=== PATIENT | female | born 1930 | race African-American/Black ===

== ENCOUNTER 2021-05-04 03:23 | Inpatient (IN) | payer OTHER ==
--- OUTSIDE RECORDS SUMMARY | 2021-05-04 03:26 | XMS REPORT | Continuity of Care Document ---
:1930 Author Organization [facility] t Address [address] [place] [address] Care Team Providers Name Role Phone ERICKSON_R Attending Clinician Unavailable ERICKSON_R Admitting Clinician Unavailable Payers Payer Name Policy Type Policy Number Effective Date Expiration Date Ronaldo diggs MEDICARE B-[place]: [id number] 1996 [employer] 00:00:00 Problems This patient has no known problems. Allergies, Adverse Reactions, Alerts This patient has no known allergies or adverse reactions. Medications This patient has no known medications. Procedures This patient has no known procedures. Encounters Start End Encounter Admission Attending Care Care Encounter Source Date/Time Date/Time Type Type Clinicians Facility Department ID 2020-05-07 2020-05-07 Outpatient ERICKSON_R [facility] [id number] [place] 01:03:00 01:03:00 [facility] 2020-04-06 2020-04-06 Outpatient ERICKSON_R [facility] [id number] [place] 10:31:00 10:31:00 [facility] 2020-03-21 2020-03-21 Outpatient ERICKSON_R [facility] [id number] [place] 02:40:00 02:40:00 [facility] 2020-03-13 2020-03-13 Outpatient ERICKSON_R [facility] [id number] [place] 10:51:00 10:51:00 [facility] 2020-03-09 2020-03-09 Outpatient ERICKSON_R [facility] [id number] - [place] 04:12:00 04:12:00 [facility] Results This patient has no known results.
[2021-05-04] MEDS ORDERED: NA CHLORIDE 0.9% 1,000 ML ONE ×3 (05:03→12:24)
[2021-05-04] MEDS ORDERED: ONDANSETRON 4 MG/2 ML VIAL ONE (05:03)
[2021-05-04 05:16] LABS: Absolute Lymphocytes (CBC) 0.5 K/uL (0.7-4.9); Hematocrit 37.9 % (36.0-45.0); Lymphocytes % 3.2 % (15.3-44.8); MPV 6.7 fL (7.6-11.3); RBC Red Blood Cell Count 4.48 M/uL (3.86-4.86)
[2021-05-04 05:39] LABS: BUN Blood Urea Nitrogen 20 mg/dL (7-18); Bicarbonate 24 mmol/L (21-32); Glucose Level 151 mg/dL (74-106); Potassium 4.2 mmol/L (3.5-5.1); Sodium Level 132 mmol/L (136-145)
[2021-05-04 05:43] LABS: Blood Morphology Comment NOT SEEN (NOT SEEN); Platelet Estimate ADEQ; White Blood Cell Scan OK (OK)
[2021-05-04] MEDS ORDERED: METHYLPREDNISOLONE 125 MG INJ ONE (05:59)
[2021-05-04] MEDS ORDERED: NA CHLORIDE 0.9% 250 ML ONE (06:00)
[2021-05-04] MEDS ORDERED: CEFTRIAXONE 500 MG/VIAL ONE (06:00)
[2021-05-04] MEDS ORDERED: AZITHROMYCIN 500 MG INJ IVPB ONE (06:00)
[2021-05-04] MEDS ORDERED: NA CHLORIDE 0.9% 50 ML ONE (06:00)
--- NOTE | 2021-05-04 06:01 | ER ---
Nurse's Notes [facility] Name: Chary Ramachandran Age: 89 yrs Sex: Female : 1930 Arrival Date: 05/04/2021 Time: 03:26 Bed 7 Private MD: Diagnosis: Pneumonia due to SARS-associated coronavirus;Hypoxemia;Dehydration Presentation: 05/04 03:26 Chief complaint: EMS states: called out for mouth bleeding, pt has been on hospice for as6 about 1 year for ulcers on backside and dementia. Coronavirus screen: tested positive for COVID on 04/23. Ebola Screen: No symptoms or risks identified at this time. Initial Sepsis Screen: Does the patient meet any 2 criteria? No. Patient's initial sepsis screen is negative. Does the patient have a suspected source of infection? No. Patient's initial sepsis screen is negative. Risk Assessment: Do you want to hurt yourself or someone else? Unable to obtain. Onset of symptoms was May 04, 2021. 03:26 Method Of Arrival: EMS: [facility] [place] [place] [facility] as6 03:26 Acuity: TRICIA 3 as6 Triage Assessment: 04:25 General: Behavior is flat. daja Historical: - Allergies: 03:56 No Known Allergies; as6 - Home Meds: 03:56 None [Active]; as6 - Immunization history:: Adult Immunizations unknown. - Social history:: Smoking status: unknown. - Family history:: not pertinent. - Hospitalizations: : No recent hospitalization is reported. Screenin:19 Abuse screen: Denies threats or abuse. Denies injuries from another. Nutritional daja screening: Difficulty chewing/swallowing? Yes. Tuberculosis screening: No symptoms or risk factors identified. Fall Risk None identified. Assessment: 04:06 General: Appears unkempt, malnourished, Contracted to all extremities and decubitus to daja chest wall, arms-bilaterally, buttocks, with multiple stages of decay and old scars from healed ulcers. Duoderm to buttocks "was just changed today", per the pt's granddaughter. The pt's granddaughter is at bedside, although the pt was brought in via EMS. She had "chewed" her gums and there was clotted blood that was suctioned from her mouth, by the MD and RT is presently, suctioning the pt. The pt is a hospice pt and her granddaughter states the same. The pt's diaper was changed, as the foul smell from the wounds, made me think she had soiled herself. This was not the case. We removed the multiple blankets and the linen, beneath and around the pt. . Pain: Unable to use pain scale. Patient appears chewing her gums until they bleed. Neuro: Level of Consciousness is non-verbal and awake, but not responsive to commands. This is her baseline, per the pt's granddaughter. . Cardiovascular: Rhythm is sinus tachycardia with multifocal PVCs 144bpm, during suctioning. Respiratory: Breath sounds with rhonchi Gurgling audible without a stethoscope. GI: Incontinent. : Incontinent. Derm: Decubitus located on bilateral sacrum hands, arms, buttocks and heels. Musculoskeletal: contracted to all ext. 04:26 General: The pt appears much more comfortable after she was suctioned. . daja 05:08 Respiratory: Breath sounds are diminished bilaterally. in left lower lobe and right daja lower lobe The pt's breathing has greatly improved, after RT suctioned her. Her granddaughter and great-granddaughter are at bedside. The labs that my charge nurse was able to draw, as she used the US to place the pt's SL to her Lt hand. was informed of this and we are giving the fluids to see if we may be able to collect the other labs, after it's infusion. The pt appears much more comfortable. 05:17 General: The granddaughter and great-granddaughter, at bedside, were reassured that it daja is apparent that they are caring for the pt well and to the best of their ability. They thanked me and I sincerely meant this, given their caring and doting on the pt and a history of the same, with every hospital stay. . 06:18 General: The pt's two sons have come to her bedside to see her, although she does not daja respond to anyone. The pt's VS have improved and all the labs were sent, and the lab was called, as my charge nurse had a very difficult time getting her blood. The pt never protested and simply stared ahead, not responding. The MD discussed with the family at bedside, the seriousness of the pt's condition and affirmed that she had previously been on hospice. . 06:23 General:. daja 06:24 General: The admitting MD is at bedside, assessing the pt and speaking with the son and daja granddaughter. . 07:42 General: Appears comfortable, Behavior is unresponsive. Pain: Unable to use pain scale. ke1 Patient appears quiet. Neuro: Level of Consciousness is unresponsive. Cardiovascular: Rhythm is sinus tachycardia. Respiratory: Airway obstructed, Respiratory effort is unlabored, Respiratory pattern is regular, Sputum is bloody Patient unable to swallow mouth secretion Breath sounds are coarse bilaterally. GI: Abdomen is non-distended, Abd is soft and non tender. : incontinent on diaper. 07:58 Derm: Skin is thin, Decubitus located on bilateral sacrum. Musculoskeletal: Bony ke1 deformity noted of contractures upper extremities Swelling present in bilateral elbows. 09:00 Reassessment: No changes from previously documented assessment. ke1 10:00 Reassessment: No changes from previously documented assessment. Patient and/or family ke1 updated on plan of care and expected duration. Pain level reassessed. . 11:00 Reassessment: No changes from previously documented assessment. ke1 Vital Signs: 03:26 BP 147 / 87; Pulse 130; Resp 30; Pulse Ox 90% on 3 lpm NC; as6 03:57 BP 144 / 90; Pulse 136; Resp 24 S; Pulse Ox 92% on 2 lpm NC; as6 04:06 Weight 52.16 kg (R); Height 5 ft. 8 in. (172.72 cm) (R); as6 04:21 BP 127 / 70; Pulse 133; Resp 28; Temp 97.7; Pulse Ox 95% on 2 lpm NC; daja 05:14 BP 101 / 77; Pulse 126; Resp 26; Temp 97.6; Pulse Ox 97% on 2 lpm NC; Pain 0/10; daja 06:17 BP 122 / 74; Pulse 110; Resp 26; Temp 97.6; Pulse Ox 96% on 2 lpm NC; Pain 0/10; daja 08:00 BP 120 / 73; Pulse 107; Resp 21; Temp 96.8; Pulse Ox 96% on 2 lpm NC; ke1 10:34 BP 134 / 94; Pulse 115; Resp 19; Pulse Ox 97% on 2 lpm NC; jd3 04:06 Body Mass Index 17.49 (52.16 kg, 172.72 cm) as6 ED Course: 03:26 Patient arrived in ED. as6 03:26 Jabari Oneill MD is Attending Physician. rn 03:56 Triage completed. as6 03:57 Arm band placed on. as6 04:01 Zahraa Dai, DANE is Primary Nurse. daja 04:06 XRAY Chest (1 view) In Process Unspecified. EDMS 04:19 Patient has correct armband on for positive identification. Placed in gown. Bed in low daja position. Call light in reach. Side rails up X2. Adult w/ patient. vehicle monitor technician on. Pulse ox on. NIBP on. Warm blanket given. Verbal reassurance given. to the family. 04:19 Missed attempt(s): 20 gauge in right wrist. daja 04:25 No provider procedures requiring assistance completed. daja 05:00 Inserted saline lock: 22 gauge in right wrist, using aseptic technique. daja 05:12 CBC with Diff Sent. daja 05:12 Basic Metabolic Panel Sent. daja 05:12 SARS-COV-2 RT PCR (Document "Date of Onset" if Symptomatic) Sent. daja 05:45 Inserted saline lock: 22 gauge in right ,using aseptic technique. lower leg Blood daja collected. 05:53 CRP Sent. daja 05:53 Lactate Sent. daja 05:53 Blood Culture Sent. daja 05:53 Procalcitonin Sent. daja 05:53 Procalcitonin Sent. daja 05:53 Blood Culture Adult (2) Sent. daja 05:53 Protime (+inr) Sent. daja 05:54 Ptt, Activated Sent. daja 06:00 Franko Alcala is Hospitalizing Provider. rn Administered Medications: 05:00 Drug: Zofran (Ondansetron) 4 mg Route: IVP; Site: right wrist; daja 05:13 Follow up: Response: No adverse reaction daja 05:00 Drug: NS 0.9% 1000 ml Route: IV; Rate: 1000 ml; Site: right wrist; daja 07:05 Follow up: IV Status: Completed infusion ke1 05:29 Drug: NS 0.9% 1000 ml Route: IV; Rate: 1000 ml; Site: right hand; as6 07:30 Follow up: IV Status: Completed infusion ke1 06:00 Drug: SOLU-Medrol (methylPrednisoLONE) 125 mg Route: IVP; Site: right wrist; daja 06:16 Follow up: Response: No adverse reaction daja 06:05 Drug: Rocephin (cefTRIAXone) 1 grams Route: IV; Rate: calculated rate; Site: right daja wrist; 06:17 Follow up: Response: No adverse reaction; IV Status: Completed infusion; IV Intake: 50mlbo 06:16 Drug: Zithromax (azithromycin) 500 mg Route: IVPB; Infused Over: 1 hrs; Site: right daja wrist; 07:16 Follow up: Response: No adverse reaction ke1 07:16 Follow up: IV Status: Completed infusion ke1 Intake: 06:17 IV: 50ml; Total: 50ml. daja Outcome: 04:26 critical daja 06:00 Decision to Hospitalize by Provider. rn 16:16 Patient left the ED. ab2 Signatures: Dispatcher [employer] EDMS Jabari Oneill MD MD rn Davies, Jonathon, RN RN jd3 Slawson, Ashby, RN RN as6 Zahraa Dai RN RN bo Bleininger, Alexis ab2 Eh Kennedy RN RN ke1 Corrections: (The following items were deleted from the chart) 08:29 07:05 IV Status: Completed infusion ke1 ke1 08:34 08:00 BP 120 / 73; Pulse 107bpm; Resp 16bpm; Pulse Ox 96% 2 lpm Nasal Cannula; Temp ke1 96.8F; ke1 08:35 07:42 Respiratory: Airway obstructed, Respiratory effort is unlabored, Respiratory ke1 pattern is regular, Sputum is bloody Patient unable to swallow mouth secretion Breath sounds are coarse bilaterally. ke1
--- NOTE | 2021-05-04 06:01 | EDPHYS ---
Physician Documentation [facility] Name: Chary Ramachandran Age: 89 yrs Sex: Female : 1930 Arrival Date: 05/04/2021 Time: 03:26 Bed 7 Private MD: ED Physician Jabari Oneill HPI: 05/04 03:42 This 89 yrs old Black Female presents to ER via Unassigned with complaints of bleeding rn from mouth. 03:42 The patient presents with bleeding. rn 03:44 The problem is located in the mouth. Onset: The symptoms/episode began/occurred today. rn Duration: The symptoms are continuous. Modifying factors: The symptoms are alleviated by nothing, the symptoms are aggravated by nothing. Severity of symptoms: At their worst the symptoms were mild, in the emergency department the symptoms have improved. The patient has not experienced similar symptoms in the past. The patient has not recently seen a physician. Family member states patient diagnosed with COVID 11 days ago, has not been eating or drinking lately, placed on 2 L oxygen last week, on hospice. Presents today after family noticed blood coming from mouth. No known trauma. Not on blood thinners. EMS placed on facemask for concern of aspiration and oxygen sat 95%. Family reports just changed dressing on decubitus ulcers and no signs of infection/drainage, and seem to be healing ok. . Historical: - Allergies: 03:56 No Known Allergies; as6 - Home Meds: 03:56 None [Active]; as6 - Immunization history:: Adult Immunizations unknown. - Social history:: Smoking status: unknown. - Family history:: not pertinent. - Hospitalizations: : No recent hospitalization is reported. ROS: 03:44 Unable to obtain ROS due to baseline dementia. rn Exam: 03:44 Constitutional: Cachectic female, with contractures, mild tachypnea and coarse wet rn breath sounds audible from foot of bed. Head/Face: Normocephalic, atraumatic. Eyes: Periorbital areas with no swelling, redness, or edema. ENT: Poor dentition without focal area of bleeding other than gums, has a couple of teeth and grinding, no tongue laceration noted, suctioned and small clots removed. Bites down quickly on suction. Cardiovascular: Tachycardic, regular Respiratory: Coarse breath sounds bilaterally, difficult to tell if resonating from pharynx/hypopharynx. Abdomen/GI: Soft, non-tender Skin: Warm, dry, no cyanosis MS/ Extremity: + upper ext contractures. Neuro: Awake, does not move upper extremities. Vital Signs: 03:26 BP 147 / 87; Pulse 130; Resp 30; Pulse Ox 90% on 3 lpm NC; as6 03:57 BP 144 / 90; Pulse 136; Resp 24 S; Pulse Ox 92% on 2 lpm NC; as6 04:06 Weight 52.16 kg (R); Height 5 ft. 8 in. (172.72 cm) (R); as6 04:21 BP 127 / 70; Pulse 133; Resp 28; Temp 97.7; Pulse Ox 95% on 2 lpm NC; daja 05:14 BP 101 / 77; Pulse 126; Resp 26; Temp 97.6; Pulse Ox 97% on 2 lpm NC; Pain 0/10; daja 06:17 BP 122 / 74; Pulse 110; Resp 26; Temp 97.6; Pulse Ox 96% on 2 lpm NC; Pain 0/10; daja 08:00 BP 120 / 73; Pulse 107; Resp 21; Temp 96.8; Pulse Ox 96% on 2 lpm NC; ke1 10:34 BP 134 / 94; Pulse 115; Resp 19; Pulse Ox 97% on 2 lpm NC; jd3 04:06 Body Mass Index 17.49 (52.16 kg, 172.72 cm) as6 MDM: 03:27 Patient medically screened. rn 04:19 ED course: Pt improved with deep suctioning by RT, upper airway noise improved, no rn blood obtained from posterior pharynx, only mucous. . 05:43 ED course: Family ok with patient being admitted, states DNR/DNI. . ED course: No rn longer bleeding, patient not chewing/gnawing as much now that is breathing easier and not as agitated.. 05:59 Differential diagnosis: Pneumonia, COVID, dehydration, acute renal failure, delirium. rn Data reviewed: vital signs, nurses notes, lab test result(s), EKG, radiologic studies, plain films, and as a result, I will admit patient. Counseling: I had a detailed discussion with the patient and/or guardian regarding: the historical points, exam findings, and any diagnostic results supporting the discharge/admit diagnosis, lab results, radiology results, the need for further work-up and treatment in the hospital. Response to treatment: the patient's symptoms have mildly improved after treatment, and as a result, I will admit patient. Admission orders: after a detailed discussion of the patient's condition and case, the admit orders are written by me. 05/04 03:42 Order name: CBC with Diff; Complete Time: 05:59 rn 05/04 03:42 Order name: Basic Metabolic Panel; Complete Time: 05:59 rn 05/04 03:42 Order name: Protime (+inr); Complete Time: 06:40 rn 05/04 03:42 Order name: Ptt, Activated; Complete Time: 06:40 05/04 03:42 Order name: SARS-COV-2 RT PCR (Document "Date of Onset" if Symptomatic); Complete Time: rn 05:05/04 04:35 Order name: Blood Culture Adult (2) 05/04 04:35 Order name: Procalcitonin 05/04 04:36 Order name: Blood Culture [facility] 05/04 04:36 Order name: Procalcitonin [facility] 05/04 04:37 Order name: Lactate; Complete Time: 06:40 rn 05/04 04:37 Order name: CRP; Complete Time: 06:40 05/04 05:20 Order name: CBC Smear Scan; Complete Time: 05:59 EDIN 05/04 08:01 Order name: CBC with Automated Diff [facility] 05/04 08:01 Order name: CBC with Automated Diff [facility] 05/04 03:42 Order name: IV Start; Complete Time: 05:12 05/04 03:42 Order name: XRAY Chest (1 view) 05/04 03:42 Order name: Suction; Complete Time: 05:12 05/04 03:52 Order name: Cardiac monitoring; Complete Time: 05:13 05/04 03:52 Order name: O2 Sat Monitoring; Complete Time: 05:13 05/04 08:01 Order name: Comprehensive Metabolic Panel [facility] 05/04 08:01 Order name: Comprehensive Metabolic Panel [facility] 05/04 10:13 Order name: Diet Pureed; Complete Time: 10:14 jd3 Administered Medications: 05:00 Drug: Zofran (Ondansetron) 4 mg Route: IVP; Site: right wrist; daja 05:13 Follow up: Response: No adverse reaction daja 05:00 Drug: NS 0.9% 1000 ml Route: IV; Rate: 1000 ml; Site: right wrist; daja 07:05 Follow up: IV Status: Completed infusion ke1 05:29 Drug: NS 0.9% 1000 ml Route: IV; Rate: 1000 ml; Site: right hand; as6 07:30 Follow up: IV Status: Completed infusion ke1 06:00 Drug: SOLU-Medrol (methylPrednisoLONE) 125 mg Route: IVP; Site: right wrist; daja 06:16 Follow up: Response: No adverse reaction daja 06:05 Drug: Rocephin (cefTRIAXone) 1 grams Route: IV; Rate: calculated rate; Site: right daja wrist; 06:17 Follow up: Response: No adverse reaction; IV Status: Completed infusion; IV Intake: 50mlbo 06:16 Drug: Zithromax (azithromycin) 500 mg Route: IVPB; Infused Over: 1 hrs; Site: right daja wrist; 07:16 Follow up: Response: No adverse reaction ke1 07:16 Follow up: IV Status: Completed infusion ke1 Disposition Summary: 05/04/21 06:00 Hospitalization Ordered Hospitalization Status: Inpatient Admission rn Provider: Franko Alcala rn Condition: Stable rn Problem: an ongoing problem rn Symptoms: have improved rn Bed/Room Type: Standard rn Location: Telemetry/MedSurg (Inpatient)(05/04/21 14:22) eb Room Assignment: [facility](05/04/21 14:22) eb Diagnosis - Pneumonia due to SARS-associated coronavirus rn - Hypoxemia rn - Dehydration rn Forms: - Medication Reconciliation Form rn - SBAR form rn Signatures: Dispatcher [employer] Jabari Toledo MD MD rn Smirch, Shelby RN RN Khloe Islas Ashby, RN RN as6 Zahraa Dai RN RN bo Ebrottie, Kouassi RN ke1 Corrections: (The following items were deleted from the chart) 05:43 03:44 Family member states patient diagnosed with COVID 11 days ago, has not been rn eating or drinking lately, placed on 2 L oxygen last week, on hospice. Presents today after family noticed blood coming from mouth. No known trauma. Not on blood thinners. EMS placed on facemask for concern of aspiration and oxygen sat 95%. . rn 06:00 Telemetry/MedSurg (Inpatient) rn ss : rn ss [facility] ER HOLD ss eb ERHOLD- eb
[2021-05-04 06:21] LABS: Protime INR 1.14
[2021-05-04] MEDS ORDERED: ACETAMINOPHEN 500 MG TAB PO PRN (07:58)
[2021-05-04] MEDS ORDERED: MORPHINE 2 MG/ML SYR IV PRN (07:58)
[2021-05-04] MEDS ORDERED: ONDANSETRON 4 MG/2 ML VIAL IV PRN (07:58)
[2021-05-04] MEDS: NA CHLORIDE 0.9% 1,000 ML IV SCH ×2 (08:00→21:20)
--- NOTE | 2021-05-04 11:21 | RAD REPORT ---
EXAM DESCRIPTION: [place] Single View05/04/2021 4:06 am CLINICAL HISTORY: DYSPNEA COMPARISON: None. FINDINGS: Single frontal radiograph view of the chest. Cardiomediastinal silhouette: Atherosclerotic calcification of thoracic aorta. Heart is not enlarged. Leads overlie the chest. Lungs: Patchy bibasilar opacities and possible small pleural effusions. No pneumothorax. Bones: Degenerative change of the spine and shoulders. Upper abdomen: No abnormality identified. IMPRESSION: 1. Patchy bibasilar opacities may be related to atelectasis or pneumonia. Possible small bilateral pleural effusions. Electronically signed by: Anthony Patiño 05/04/2021 5:25 AM ELEVATOR CONSTRUCTOR HELPER Due to temporary technical issues with the PACS/Fluency reporting system, reports are being signed by the in house radiologist without review as a courtesy to ensure prompt reporting. The interpreting r adiologist is fully responsible for the content of the report.
[2021-05-04 18:02] VITALS: BMI 17.3
[2021-05-04] MEDS ORDERED: CEFTRIAXONE 1,000 MG in NA CHLORIDE 0.9% 50 ML IVPB ONE (18:26)
[2021-05-04] MEDS ORDERED: METOPROLOL TARTRATE 5 MG/5 ML INJ IV STA (18:27)
[2021-05-05] MEDS: METHYLPREDNISOLONE 125 MG INJ IV SCH ×4 (01:36→17:20)
[2021-05-05 06:16] LABS: Absolute Lymphocytes (CBC) 0.3 K/uL (0.7-4.9); Hematocrit 30.3 % (36.0-45.0); Lymphocytes % 2.1 % (15.3-44.8); MPV 6.7 fL (7.6-11.3); RBC Red Blood Cell Count 3.52 M/uL (3.86-4.86)
[2021-05-05 06:36] LABS: ALT/SGPT 25 U/L (12-78); AST/SGOT 26 U/L (15-37); Albumin 1.9 g/dL (3.4-5.0); Alkaline Phosphatase 97 U/L (45-117); BUN Blood Urea Nitrogen 19 mg/dL (7-18); Bicarbonate 25 mmol/L (21-32); Bilirubin Total 0.6 mg/dL (0.2-1.0); Glucose Level 125 mg/dL (74-106); Potassium 3.2 mmol/L (3.5-5.1); Protein, Total 6.9 g/dL (6.4-8.2); Sodium Level 139 mmol/L (136-145)
[2021-05-05] MEDS ORDERED: CEFTRIAXONE 1,000 MG in NA CHLORIDE 0.9% 50 ML IVPB ONE (12:00)
[2021-05-05] MEDS: Levofloxacin500mg IV 500 MG/100 ML BAG IV SCH (12:08)
[2021-05-05] MEDS: NA CHLORIDE 0.9% 1,000 ML IV SCH (12:08)
--- NOTE | 2021-05-05 13:56 | P.HP ---
Certification for Inpatient Patient admitted to: Inpatient With expected LOS: >2 Midnights Patient will require the following post-hospital care: None Practitioner: I am a practitioner with admitting privileges, knowledge of patient current condition, hospital course, and medical plan of care. Services: Services provided to patient in accordance with Admission requirements found in Title 42 Section 412.3 of the Code of Federal Regulations Patient History Date of Service: 05/04/21 Reason for admission: Shortness of breath;COVID-19 with Acute P History of Present Illness: Patient is an 89-year-old female who came to the hospital with shortness of breath. Patient is on hospice for Alzheimer's dementia. She is end-stage. She does not really eat much anymore. She is bedbound. She needs her family to feed her. She is on hospice care team service. She was brought into the emergency room because she had blood in her mouth. She had been severely dehydrated from multiple bouts of diarrhea. She was found to have Covid pneumonia. She is slightly hypoxic and requiring 2 L of oxygen. She will be admitted for further treatment. Allergies No Known Allergies Allergy (Unverified 05/04/21 08:26) Home Medications: NK [No Home Meds] 05/04/21 - Past Medical/Surgical History -: Alzheimer's dementia Past Surgical History: Patient denies surgical history - Family History Father Family History: Reviewed- Non-Contributory - Social History Smoking Status: Unknown if ever smoked Alcohol use: No CD- Drugs: No Review of Systems 10-point ROS is otherwise unremarkable Physical Examination - Vital Signs Temperature: 97.2 F Blood Pressure: 144/80 Pulse: 97 Respirations: 20 Pulse Ox (%): 97 - Physical Exam General: Demented, Confused HEENT: Atraumatic, PERRLA, Mucous membr. moist/pink, EOMI, Sclerae nonicteric Neck: Supple, 2+ carotid pulse no bruit, No LAD, Without JVD or thyroid abnormality Respiratory: Diminished, Expiratory wheezes Cardiovascular: Regular rate/rhythm, Normal S1 S2, No murmurs Gastrointestinal: Normal bowel sounds, Soft and benign, Non-distended, No tenderness Musculoskeletal: No clubbing, No swelling, No tenderness Neurological: Normal tone, Sensation intact, Cranial nerves 3-12 intact, Abnormal affect Lymphatics: No axilla or inguinal lymphadenopathy - Studies Laboratory Data (last 24 hrs) 05/05/21 05:56: Sodium 139, Potassium 3.2 L, BUN 19 H, Creatinine 0.50 L, Glucose 125 H, Total Bilirubin 0.6, AST 26, ALT 25, Alkaline Phosphatase 97 05/05/21 05:56: WBC 16.80 H, Hgb 9.8 L D, Hct 30.3 L D, Plt Count 263 Microbiology Data (last 24 hrs): 05/04/21 05:45 Blood - Blood Anaerobic Blood Culture - Final Assessment & Plan - Problems (Diagnosis) (1) Alzheimer's dementia Current Visit: Yes Status: Acute (2) Pneumonia due to COVID-19 virus Current Visit: Yes Status: Acute (3) Leukocytosis Current Visit: Yes Status: Acute (4) Bedbound Current Visit: Yes Status: Acute - Plan Plan: 1. Continue with IV antibiotics 2. Awaiting blood culture 3. Repeat chest x-ray as needed 4. Supportive care 5. pain control along with comfort foods 6. Continue with nebs as needed 7. O2 per protocol 8. Continue with gentle hydration 9. Repeat labs including CBC and renal function in a.m. 10. GI and DVT prophylaxis Discharge Plan: Other Plan to discharge in: Greater than 2 days - Advance Directives Does patient have a Living Will: No Does patient have a Durable POA for Healthcare: No - Code Status/Comfort Care Code Status Assessed: Yes Code Status: Do Not Attempt Resuscitat Comfort Measures: Hospice Care Critical Care: No Time Spent Managing PTS Care (In Minutes): 45
--- NOTE | 2021-05-05 14:09 | P.PN ---
Subjective Date of Service: 05/05/21 Subjective: No new changes, No C/O voiced, Demented Spoke with microbiology. Patient blood cultures are 3 out of 4 bottles positive. Most likely gram-positive cocci which is not a contamination per micro. Continue on antibiotic therapy. Patient will proceed with hospice care at discharge. Patient was on hospice care but the family revoked it when they brought her into the hospital. She could probably continue with hospice at this time. Discussed with family regarding discharge planning. Patient with advanced dementia and long-term prognosis is poor. Review of Systems is unable to be obtained Physical Examination - Vital Signs Temperature: 97.2 F Blood Pressure: 144/80 Pulse: 97 Respirations: 20 Pulse Ox (%): 97 - Physical Exam General: Alert, In no apparent distress, Demented, Confused HEENT: Atraumatic, PERRLA, EOMI Neck: Supple, JVD not distended Respiratory: Diminished Cardiovascular: Regular rate/rhythm, Normal S1 S2 Gastrointestinal: Normal bowel sounds, No tenderness Musculoskeletal: No tenderness Integumentary: No rashes Neurological: Abnormal gait, Abnormal speech, Abnormal strength - Studies Laboratory Data (last 24 hrs) 05/05/21 05:56: Sodium 139, Potassium 3.2 L, BUN 19 H, Creatinine 0.50 L, Glucose 125 H, Total Bilirubin 0.6, AST 26, ALT 25, Alkaline Phosphatase 97 05/05/21 05:56: WBC 16.80 H, Hgb 9.8 L D, Hct 30.3 L D, Plt Count 263 Microbiology Data (last 24 hrs): 05/04/21 05:45 Blood - Blood Anaerobic Blood Culture - Final Medications List Reviewed: Yes Assessment & Plan - Problems (Diagnosis) (1) Alzheimer's dementia Current Visit: Yes Status: Acute (2) Pneumonia due to COVID-19 virus Current Visit: Yes Status: Acute (3) Leukocytosis Current Visit: Yes Status: Acute (4) Bedbound Current Visit: Yes Status: Acute - Plan Plan: 1. Continue with IV antibiotics 2. Awaiting blood culture 3. Repeat chest x-ray as needed 4. Supportive care; continue with comfort foods as tolerated 5. pain control along with comfort foods 6. Continue with nebs as needed 7. O2 per protocol 8. Hep-Lock IV 9. Repeat labs 10. GI and DVT prophylaxis Discharge Plan: Home Plan to discharge in: Greater than 2 days - Advance Directives Does patient have a Living Will: No Does patient have a Durable POA for Healthcare: No - Code Status/Comfort Care Code Status: Do Not Attempt Resuscitat Comfort Measures: Hospice Care Critical Care: No Time Spent Managing PTS Care (In Minutes): 35
[2021-05-05] MEDS: KCL 20 MEQ/100 mL IVPB 20 MEQ/100 ML BAG IV SCH ×2 (15:46→17:18)
[2021-05-05] MEDS: CEFTRIAXONE 1,000 MG in NA CHLORIDE 0.9% 50 ML IVPB SCH (21:00)
[2021-05-06] MEDS: METHYLPREDNISOLONE 125 MG INJ IV SCH ×4 (02:17→17:19)
[2021-05-06 06:15] LABS: Absolute Lymphocytes (CBC) 0.4 K/uL (0.7-4.9); Hematocrit 32.3 % (36.0-45.0); Lymphocytes % 2.2 % (15.3-44.8); MPV 7.1 fL (7.6-11.3); RBC Red Blood Cell Count 3.71 M/uL (3.86-4.86)
[2021-05-06 07:00] LABS: BUN Blood Urea Nitrogen 22 mg/dL (7-18); Bicarbonate 22 mmol/L (21-32); Glucose Level 109 mg/dL (74-106); Potassium 3.7 mmol/L (3.5-5.1); Sodium Level 141 mmol/L (136-145)
[2021-05-06] MEDS: CEFTRIAXONE 1,000 MG in NA CHLORIDE 0.9% 50 ML IVPB SCH ×2 (08:47→20:37)
[2021-05-06] MEDS ORDERED: KCL 20 MEQ/100 mL IVPB 20 MEQ/100 ML BAG IV SCH (09:00)
[2021-05-06] MEDS: Levofloxacin500mg IV 500 MG/100 ML BAG IV SCH (11:28)
[2021-05-06] MEDS ORDERED: MORPHINE 4 MG/ML SYR IV PRN (14:51)
[2021-05-06] MEDS: NA CHLORIDE 0.9% 1,000 ML IV SCH ×2 (17:17)
--- NOTE | 2021-05-06 18:21 | P.PN ---
Date of Service: 05/06/21 Subjective Patient clinical symptoms with no significant changes. Patient has advanced dementia for 15 years. Family wanting hospice care. However, when she became sick with having persistent diarrhea and generalized weakness the family brought her into the hospital and had revoked her hospice. She is however doing better at this time. Prognosis is poor. She will be stable for transfer back to hospice once we get final blood culture results. Review of Systems is unable to be obtained Physical Examination - Vital Signs Reviewed - Physical Exam General: Alert, In no apparent distress, Demented, Confused Respiratory: Diminished Cardiovascular: Regular rate/rhythm, Normal S1 S2 Gastrointestinal: Normal bowel sounds, No tenderness Musculoskeletal: No tenderness Integumentary: No rashes Neurological: Abnormal gait, Abnormal speech, Abnormal strength Assessment & Plan - Problems (Diagnosis) (1) Alzheimer's dementia Current Visit: Yes Status: Acute (2) Pneumonia due to COVID-19 virus Current Visit: Yes Status: Acute (3) Leukocytosis Current Visit: Yes Status: Acute (4) Bedbound Current Visit: Yes Status: Acute - Plan Continue with plan of care as mentioned below: 1. Continue with IV antibiotics 2. Awaiting blood culture; currently 3 out of 4 bottles with gram-positive cocci 3. Repeat chest x-ray as needed 4. Supportive care; continue with comfort foods as tolerated 5. pain control along with comfort foods 6. Continue with nebs as needed 7. O2 per protocol 8. Hep-Lock IV 9. Repeat labs 10. GI and DVT prophylaxis Discharge Plan: Home; family will proceed with hospice care at discharge Plan to discharge in: Greater than 2 days - Advance Directives Does patient have a Living Will: No Does patient have a Durable POA for Healthcare: No - Code Status/Comfort Care Code Status: Do Not Attempt Resuscitat Comfort Measures: Hospice Care Critical Care: No Time Spent Managing PTS Care (In Minutes): 35
[2021-05-07] MEDS: METHYLPREDNISOLONE 125 MG INJ IV SCH ×4 (00:19→17:39)
[2021-05-07] MEDS: NA CHLORIDE 0.9% 1,000 ML IV SCH ×2 (02:40→05:56)
[2021-05-07 07:02] LABS: Absolute Lymphocytes (CBC) 0.3 K/uL (0.7-4.9); Hematocrit 29.2 % (36.0-45.0); Lymphocytes % 3.2 % (15.3-44.8); RBC Red Blood Cell Count 3.39 M/uL (3.86-4.86)
[2021-05-07 07:18] LABS: BUN Blood Urea Nitrogen 24 mg/dL (7-18); Bicarbonate 22 mmol/L (21-32); Glucose Level 104 mg/dL (74-106); Magnesium 1.8 mg/dL (1.8-2.4); Potassium 3.6 mmol/L (3.5-5.1); Sodium Level 143 mmol/L (136-145)
[2021-05-07] MEDS: CEFTRIAXONE 1,000 MG in NA CHLORIDE 0.9% 50 ML IVPB SCH (09:39)
[2021-05-07] MEDS: D5W 1,000 ML IV SCH ×2 (09:39→23:20)
[2021-05-07 10:09] LABS: Platelet Estimate ADEQ; White Blood Cell Scan OK (OK)
[2021-05-07 10:10] LABS: Anisocytosis SLIGHT; Blood Morphology Comment NOTED (NOT SEEN); Hypochromasia 1+; Poikilocytosis SLIGHT
[2021-05-07] MEDS: Levofloxacin500mg IV 500 MG/100 ML BAG IV SCH (11:21)
[2021-05-07] MEDS: VANCOMYCIN 1 GM in NA CHLORIDE 0.9% 250 ML IVPB SCH (13:42)
--- NOTE | 2021-05-07 15:18 | P.PN ---
Subjective Date of Service: 05/07/21 Chief Complaint: Shortness of breath;COVID-19 with Acute P Subjective: No new changes, No C/O voiced (none verbal) Physical Examination - Vital Signs Temperature: 97.1 F Blood Pressure: 133/76 Pulse: 99 Respirations: 24 Pulse Ox (%): 99 - Studies Microbiology Data (last 24 hrs): 05/04/21 05:45 Blood - Blood Aerobic Blood Culture - Final Meth Resistant Staph Aureus 05/04/21 05:45 Blood - Blood Blood Culture Gram Stain - Final 05/04/21 05:45 Blood - Blood Anaerobic Blood Culture - Final 05/04/21 08:57 Blood - Blood Aerobic Blood Culture - Final Meth Resistant Staph Aureus 05/04/21 08:57 Blood - Blood Blood Culture Gram Stain - Final 05/04/21 08:57 Blood - Blood Anaerobic Blood Culture - Final Meth Resistant Staph Aureus 05/04/21 08:57 Blood - Blood Gram Stain - Final Medications List Reviewed: Yes Assessment And Plan - Code Status/Comfort Care Code Status Assessed: Yes Physician Review: Patient Assessed, Agree with Above Assessment and Plan Physician Review Additional Text: - Physical Exam General: Alert, In no apparent distress, Demented, Confused Respiratory: Diminished Cardiovascular: Regular rate/rhythm, Normal S1 S2 Gastrointestinal: Normal bowel sounds, No tenderness Musculoskeletal: No tenderness Integumentary: No rashes Neurological: Abnormal gait, Abnormal speech, Abnormal strength Assessment & Plan - Problems (Diagnosis) (1) Alzheimer's dementia Current Visit: Yes Status: Acute (2) Pneumonia due to COVID-19 virus Current Visit: Yes Status: Acute (3) Leukocytosis Current Visit: Yes Status: Acute (4) Bedbound Current Visit: Yes Status: Acute 5 MRSA bacteremia - Plan Continue with plan of care as mentioned below: Continue antibiotics, will arrange for PICC line placement Continue vancomycin for 2 weeks No urgent need for SERENA echo given hospice status and severe dementia We will treat empirically for 2 weeks and then follow repeat blood culture Family planning to take patient home with IV antibiotics Follow case management to arrange for home DME Plan to discharge when home antibiotics arranged 4. Supportive care; continue with comfort foods as tolerated 5. pain control along with comfort foods 6. Continue with nebs as needed 7. O2 per protocol Mild fluid overload, will switch IVF from D5 NS to D5W with Discharge Plan: Home; family will proceed with hospice care at discharge Plan to discharge in: Possibly home in a.m. - Advance Directives Does patient have a Living Will: No Does patient have a Durable POA for Healthcare: No - Code Status/Comfort Care Code Status: Do Not Attempt Resuscitat Comfort Measures: Hospice Care Critical Care: No Time Spent Managing PTS Care (In Minutes): 35
[2021-05-08] MEDS: METHYLPREDNISOLONE 125 MG INJ IV SCH ×4 (06:41→17:31)
[2021-05-08] MEDS: KCL 20 MEQ/100 mL IVPB 20 MEQ/100 ML BAG IV SCH ×2 (08:47→10:53)
[2021-05-08 09:12] LABS: Absolute Lymphocytes (CBC) 0.6 K/uL (0.7-4.9); Hematocrit 31.7 % (36.0-45.0); Lymphocytes % 14.2 % (15.3-44.8); MPV 7.5 fL (7.6-11.3); RBC Red Blood Cell Count 3.69 M/uL (3.86-4.86)
[2021-05-08 09:30] LABS: ALT/SGPT 23 U/L (12-78); AST/SGOT 21 U/L (15-37); Alkaline Phosphatase 92 U/L (45-117); BUN Blood Urea Nitrogen 17 mg/dL (7-18); Bicarbonate 25 mmol/L (21-32); Bilirubin Total 0.4 mg/dL (0.2-1.0); Glucose Level 221 mg/dL (74-106); Protein, Total 6.9 g/dL (6.4-8.2); Sodium Level 133 mmol/L (136-145)
[2021-05-08 09:35] LABS: Potassium 2.9 mmol/L (3.5-5.1)
[2021-05-08] MEDS: D5W 1,000 ML IV SCH (12:40)
[2021-05-08] MEDS ORDERED: KCL 20 MEQ/100 mL IVPB 20 MEQ/100 ML BAG IV ONE (13:00)
--- NOTE | 2021-05-08 13:08 | P.PN ---
Subjective Date of Service: 05/08/21 Chief Complaint: Shortness of breath;COVID-19 with Acute P Subjective: No new changes, No C/O voiced (still non verbal and drowsy) Physical Examination - Vital Signs Temperature: 96.5 F Blood Pressure: 112/88 Pulse: 66 Respirations: 20 Pulse Ox (%): 98 - Studies Medications List Reviewed: Yes Assessment And Plan Physician Review: Patient Assessed, Agree with Above Assessment and Plan Physician Review Additional Text: - Physical Exam General: Alert, In no apparent distress, Demented, Confused Respiratory: Diminished Cardiovascular: Regular rate/rhythm, Normal S1 S2 Gastrointestinal: Normal bowel sounds, No tenderness Musculoskeletal: No tenderness Integumentary: No rashes Neurological: Abnormal gait, Abnormal speech, Abnormal strength Assessment & Plan - Problems (Diagnosis) (1) Alzheimer's dementia Current Visit: Yes Status: Acute (2) Pneumonia due to COVID-19 virus Current Visit: Yes Status: Acute (3) Leukocytosis Current Visit: Yes Status: Acute (4) Bedbound Current Visit: Yes Status: Acute 5 MRSA bacteremia - Plan Continue vancomycin daily for 2 weeks Follow Vanco trough per hospice care team Plan for discharge home when home DME arrived We will replete potassium today and switch IVF to D5 with KCl Can DC home when PICC line arranged and home antibiotics arranged to No urgent need for SERENA echo given hospice status and severe dementia We will treat empirically for 2 weeks and then follow repeat blood culture Family planning to take patient home with IV antibiotics Follow case management to arrange for home DME Plan to discharge when home antibiotics arranged 4. Supportive care; continue with comfort foods as tolerated 5. pain control along with comfort foods 6. Continue with nebs as needed 7. O2 per protocol Mild fluid overload, will switch IVF from D5 NS to D5W with Discharge Plan: Home; family will proceed with hospice care at discharge Plan to discharge in: Possibly home in a.m. - Advance Directives Does patient have a Living Will: No Does patient have a Durable POA for Healthcare: No - Code Status/Comfort Care Code Status: Do Not Attempt Resuscitat Comfort Measures: Hospice Care Critical Care: No 05/08/21 13:06
--- NOTE | 2021-05-08 13:15 | P.DS ---
Admission Date: 05/05/21 Discharge Date: 05/08/21 Disposition: HOSPICE-HOME Discharge Condition: FAIR Reason for Admission: Shortness of breath;COVID-19 with Acute P Brief History of Present Illness: L for me with home hospice for dementia admitted for shortness of breath admitted with Covid Hospital Course: Patient was hospitalized and started on empirical steroids. Blood culture was positive for MRSA bacteremia. Patient did not have any recurrent fever or hypotension. She remains non-febrile but continued to decline during hospitalization but marked anorexia requiring IVF for hydration. She will be treated with vancomycin for another 2 weeks and repeat blood culture after antibiotics completion. Echocardiogram was not thought to rule out vegetation since low likelihood as well as patient on hospice. She has recurrent hypokalemia which was repleted. - Physical Exam General: Alert, In no apparent distress, Demented, Confused Respiratory: Diminished Cardiovascular: Regular rate/rhythm, Normal S1 S2 Gastrointestinal: Normal bowel sounds, No tenderness Musculoskeletal: No tenderness Integumentary: No rashes Neurological: Abnormal gait, Abnormal speech, Abnormal strength Assessment & Plan - Problems (Diagnosis) (1) Alzheimer's dementia Current Visit: Yes Status: Acute (2) Pneumonia due to COVID-19 virus Current Visit: Yes Status: Acute (3) Leukocytosis Current Visit: Yes Status: Acute (4) Bedbound Current Visit: Yes Status: Acute 5 MRSA bacteremia - Code Status/Comfort Care Code Status: Do Not Attempt Resuscitat Vital Signs/Physical Exam: Temp Pulse Resp BP Pulse Ox 96.5 F L 66 20 112/88 98 05/08/21 13:08 05/08/21 13:08 05/08/21 13:08 05/08/21 13:08 05/08/21 13:08 Laboratory Data at Discharge: WBC 4.40 K/uL (4.3-10.9) D 05/08/21 08:41 Hgb 10.2 g/dL (12.0-15.0) L 05/08/21 08:41 Hct 31.7 % (36.0-45.0) L 05/08/21 08:41 Plt Count 274 K/uL (152-406) 05/08/21 08:41 PT 13.1 SECONDS (9.5-12.5) H 05/04/21 05:45 INR 1.14 05/04/21 05:45 APTT 26.8 SECONDS (24.3-36.9) 05/04/21 05:45 Sodium 133 mmol/L (136-145) L 05/08/21 08:41 Potassium 2.9 mmol/L (3.5-5.1) L* 05/08/21 08:41 BUN 17 mg/dL (7-18) 05/08/21 08:41 Creatinine 0.54 mg/dL (0.55-1.3) L 05/08/21 08:41 Glucose 221 mg/dL (74-106) H 05/08/21 08:41 Magnesium 1.8 mg/dL (1.8-2.4) 05/07/21 06:50 Total Bilirubin 0.4 mg/dL (0.2-1.0) 05/08/21 08:41 AST 21 U/L (15-37) 05/08/21 08:41 ALT 23 U/L (12-78) 05/08/21 08:41 Alkaline Phosphatase 92 U/L (45-117) 05/08/21 08:41 Home Medications: NK [No Home Meds] 05/04/21 Diet: Regular Followup: Unknown,U [Primary Care Provider] - Physician Review: Patient Assessed, Agree with Above Assessment and Plan Time spent managing pt's care (in minutes): 35
[2021-05-08] MEDS: VANCOMYCIN 1 GM in NA CHLORIDE 0.9% 250 ML IVPB SCH (13:19)
[2021-05-08] MEDS: D5W 1,000 ML with POTASSIUM CL 20 MEQ IV SCH ×2 (15:18)
[2021-05-09] MEDS: METHYLPREDNISOLONE 125 MG INJ IV SCH ×3 (00:07→12:21)
[2021-05-09] MEDS: D5W 1,000 ML with POTASSIUM CL 20 MEQ IV SCH ×4 (03:28→05:56)
[2021-05-09 03:56] LABS: Absolute Lymphocytes (CBC) 0.3 K/uL (0.7-4.9); Hematocrit 29.7 % (36.0-45.0); Lymphocytes % 6.4 % (15.3-44.8); MPV 7.7 fL (7.6-11.3); RBC Red Blood Cell Count 3.48 M/uL (3.86-4.86)
[2021-05-09 04:16] LABS: ALT/SGPT 26 U/L (12-78); AST/SGOT 23 U/L (15-37); Alkaline Phosphatase 91 U/L (45-117); BUN Blood Urea Nitrogen 18 mg/dL (7-18); Bicarbonate 27 mmol/L (21-32); Bilirubin Total 0.4 mg/dL (0.2-1.0); Glucose Level 195 mg/dL (74-106); Protein, Total 6.6 g/dL (6.4-8.2); Sodium Level 132 mmol/L (136-145)
[2021-05-09] MEDS ORDERED: D5W 0 ML IV ONE (05:13)
--- NOTE | 2021-05-09 09:07 | P.DS ---
Admission Date: 05/05/21 Discharge Date: 05/09/21 Disposition: HOSPICE-HOME Discharge Condition: FAIR Reason for Admission: Shortness of breath;COVID-19 with Acute P Hospital Course: Patient is a 89 year old female with advanced dementia, contracted. [facility] is [facility]. She revoked her hospital and presented with shortness of breath. She was found to have COVID PNA. She was found to have MRSA bacteremia. A picc line was placed as she will require 2 weeks of IV vancomycin. She will be discharged with Hospice. Vital Signs/Physical Exam: Temp Pulse Resp BP Pulse Ox 96 F L 70 20 145/85 H 98 05/09/21 04:00 05/09/21 04:00 05/09/21 04:00 05/09/21 04:00 05/09/21 04:00 General: Confused, Other (contracted, underweight) HEENT: Atraumatic, Normocephalic Respiratory: Other (Breathing is not laboured) Neurological: Dementia Laboratory Data at Discharge: WBC 4.70 K/uL (4.3-10.9) 05/09/21 03:40 Hgb 9.7 g/dL (12.0-15.0) L 05/09/21 03:40 Hct 29.7 % (36.0-45.0) L 05/09/21 03:40 Plt Count 250 K/uL (152-406) 05/09/21 03:40 PT 13.1 SECONDS (9.5-12.5) H 05/04/21 05:45 INR 1.14 05/04/21 05:45 APTT 26.8 SECONDS (24.3-36.9) 05/04/21 05:45 Sodium 132 mmol/L (136-145) L 05/09/21 03:40 Potassium 4.0 mmol/L (3.5-5.1) 05/09/21 03:40 BUN 18 mg/dL (7-18) 05/09/21 03:40 Creatinine 0.49 mg/dL (0.55-1.3) L 05/09/21 03:40 Glucose 195 mg/dL (74-106) H 05/09/21 03:40 Magnesium 1.8 mg/dL (1.8-2.4) 05/07/21 06:50 Total Bilirubin 0.4 mg/dL (0.2-1.0) 05/09/21 03:40 AST 23 U/L (15-37) 05/09/21 03:40 ALT 26 U/L (12-78) 05/09/21 03:40 Alkaline Phosphatase 91 U/L (45-117) 05/09/21 03:40 Home Medications: NK [No Home Meds] 05/04/21 Diet: Regular Followup: Unknown,U [Primary Care Provider] - 1-2 Weeks (call to schedule an appointment)
[2021-05-09 10:15] VITALS: O2SAT 94
--- NOTE | 2021-05-09 11:22 | RAD REPORT ---
EXAM DESCRIPTION: RAD - Chest Single View - 05/08/2021 10:04 pm CLINICAL HISTORY: Picc line insertion COMPARISON: 05/04/2021. TECHNIQUE: XR CHEST 1 VIEW 05/08/2021 9:47 PM EYELET P[employer]CH OPERATOR FINDINGS: Cardiac silhouette is normal in size. There is extensive airspace disease throughout the r ight lung. There is a moderate right pleural effusion. There is a small left pleural effusion. There is no pneumothorax. There are no acute osseous findings. Right PICC line tip is in the mid SVC. IMPRESSION: Worsening aeration of especially the right lung. Right PICC line in place. Electronically signed by: Milan Ling MD 05/08/2021 10:24 PM EYELET P[employer] OPERATOR Due to temporary technical issues with the PACS/Fluency reporting system, reports are being signed by the in house radiologist without review as a courtesy to ensure prompt reporting. The interpreting r adiologist is fully responsible for the content of the report.
[2021-05-09] MEDS: VANCOMYCIN 1 GM in NA CHLORIDE 0.9% 250 ML IVPB SCH (12:21)
[2021-05-09 12:52] VITALS: BP 138/70; TEMP 97.8
== END 2021-05-09 15:10 | disposition hospice, home (50) | DRG 177 ==
LOC: ER 03:23 → ERHOLD 08:20 → 4TH 15:20 → OBSVTOIN 05-05 11:28
PROVIDERS: ADMIT Hospitalist; ATTEND Internal Medicine
PROC: 02HV33Z Insertion of Infusion Device into Superior Vena Cava, Percutaneous Approach (ICD-10-PCS; principal; 2021-05-08)
DX: U07.1 COVID-19 (principal); J12.82 Pneumonia due to coronavirus disease 2019; R78.81 Bacteremia; Z68.1 Body mass index [BMI] 19.9 or less, adult; E87.6 Hypokalemia; E86.0 Dehydration; G30.9 Alzheimer's disease, unspecified; F02.80 Dementia in other diseases classified elsewhere, unspecified severity, without behavioral disturbance, psychotic disturbance, mood disturbance, and anxiety; D72.829 Elevated white blood cell count, unspecified; B95.62 Methicillin resistant Staphylococcus aureus infection as the cause of diseases classified elsewhere; R09.02 Hypoxemia; R63.0 Anorexia; Z66 Do not resuscitate; Z74.01 Bed confinement status
CPT/HCPCS: 36415; 36569; 71045; 80048; 80053; 80202; 82947; 83605; 83735; 84132; 84145; 85025; 85610; 85730; 86140; 87040; 87077; 87186; 87205; 94760; 96361; 96365; 96375; 99284; G0378; J0456; J0696; J2405; J2930; J3370; J3480; J7030; J7050; U0003